=== PATIENT | female | born 1985 | race Hispanic/Latino ===

== ENCOUNTER 2018-07-24 04:12 | Inpatient (IN) | payer BC ==
[2017-06-29 07:25] VITALS: BMI 21.7
[2018-07-24] MEDS ORDERED: Lactated Ringer's 1,000 ML IV ONE (05:07)
[2018-07-24] MEDS ORDERED: DiphenhydrAMINE 50 mg/ml Inj IVP ONE ×2 (05:09→21:21)
[2018-07-24] MEDS ORDERED: Nalbuphine 20 mg/ml Inj (1 ml) IVP PRN (05:15)
[2018-07-24 05:42] LABS: BASO % 0.3 % (0.0-2.0); EOS # 0.2 K/uL (0.0-0.7); EOS % 1.6 % (0.0-4.0); HEMOGLOBIN 12.4 g/dL (11.0-16.0); LYMPH % 18.9 % (20.0-40.0); MEAN CELL VOLUME 95.3 fL (81.0-99.0); MEAN CORPUSCULAR HEMOGLOBIN 33.9 pg (27.0-31.0); MEAN CORPUSCULAR HGB CONC 35.6 g/dL (33.0-37.0); MEAN PLATELET VOLUME 7.3 fL (7.2-11.7); MONO # 0.7 K/uL (0.0-0.8); MONO % 6.8 % (0.0-10.0); NEUT # 7.8 K/uL (1.8-7.0); NEUT % 72.4 % (50.0-75.0); RBC 3.66 Mil/uL (3.80-5.20); RED CELL DISTRIBUTION WIDTH 12.6 % (11.5-14.5); WHITE BLOOD COUNT 10.8 K/uL (4.8-10.8)
[2018-07-24 05:47] LABS: SQUAMOUS EPITHIAL 6 /hpf (0-5); URINE BACTERIA MOD (<OCC)
[2018-07-24 05:52] LABS: INR 0.9
[2018-07-24 06:01] LABS: URINE BILIRUBIN NEGATIVE (NEGATIVE); URINE CLARITY Hazy (Clear); URINE COLOR YELLOW (YELLOW); URINE GLUCOSE (UA) NEGATIVE (Normal)
[2018-07-24 06:02] LABS: PH,URINE 6.5 (5.0-8.0); URINE BLOOD SMALL (NEGATIVE); URINE LEUKOCYTE ESTERASE NEGATIVE Leu/uL (Negative); URINE PROTEIN NEGATIVE (NEGATIVE); URINE UROBILINOGEN 0.2 mg/dL (0.2-1.0)
[2018-07-24 06:15] LABS: ALB/GLOB RATIO 1.4 (1.0-2.1); ALBUMIN 3.4 g/dL (3.5-5.0); ALT/SGPT 17 U/L (9-52); AST/SGOT 23 U/L (14-36); BLOOD UREA NITROGEN 6 mg/dL (7-17); GFR NON-AFRICAN AMERICAN > 60
[2018-07-24 07:01] LABS: HEPATITIS B SURFACE AG Negative (NEGATIVE)
--- NOTE | 2018-07-24 08:59 | US ---
PROCEDURE: HISTORY: LMP unknown history now bleeding. COMPARISON: None TECHNIQUE: Transabdominal scanning of the maternal pelvis and a 2nd/ 3rd trimester with image documentation FINDINGS: Fetus: Single intrauterine gestation heart rate: Present at 144 beats per minute presentation: Cephalic Placenta: The placenta is anterior. The fetus is low cephalic presentation overlying the cervix on this exam limits optimal evaluation of the anterior inferior edge of the placenta.. No gross placenta previa seen. The technologist has noted that the anterior placenta is inferior margin was greater than 2 cm from the cervix. This would then not suggest a previa or abruption. However the captured images are limited in this regard. Amniotic fluid index: 10.4 anatomy: Limited due to late gestation. biometrics: Gestational age by ultrasound: 36 weeks 4 days +/-2 weeks 4 days Estimated weight: 2963g +/-444 g Maternal factors: Uterus: Unremarkable. No myometrial masses Cervix:3.4 cm length closed Free fluid: None Biophysical profile: Breathin Gross body movements: 2 Limb tone: 2 Amniotic Fluid: 2 Total biophysical profile: 8 IMPRESSION: Single intrauterine gestation with normal cardiac activity. Gestational age by ultrasound parameters is 36 weeks 4 days +/-2 weeks 4 days presentation - cephalic. No gross previous seen. Please note the above comments. Biophysical profile 88 Please note that there is more than 1 amniotic fluid pocket with a vertical height greater than or equal to 2 cm. The reference amniotic fluid index above may over diagnosis low amniotic fluid levels. Clinical correlation and follow-up advised
[2018-07-24] MEDS ORDERED: Sodium Citrate/Citric Acid 15 ml Sol ONE (09:21)
[2018-07-24] MEDS ORDERED: Oxytocin 20 units in LR 2,000 ML IV ONE (09:21)
[2018-07-24] MEDS ORDERED: cefOXitin IV 2 gm in Dextrose 2 GM/50 ML BAG IVPB ONE ×2 (09:21→10:00)
[2018-07-24] MEDS ORDERED: Morphine 1 mg/ml preservative-free Inj(Duramorph) ONE (09:34)
--- NOTE | 2018-07-24 09:34 | OBADHP ---
Datetime: 07/24/2018 09:23 Admit Comment, IP Provider: @ 37.2 wks GA @ 37.2 wks GA IVF with MTHFR mtuaitn on hep aleida last dose prophyalxis 7pm 07/23 rpesentat at 3am with vaignal spotting bright red with wipsing. p t was evluated, labs order, US and given IVH with helped with ctx pain pt was experince every 3-5 min 12/19. After returnign form US pt had a gush of blood followed by free flow. pt was reexamined with + ROM and increased vaginalb leeding. 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: endometriosois, hx o fendometro poly PMH; Denies PSH: Laparspcy, hyseresopcy FHX: non contbiroyr MEDS: PNV, ASPRIn d/c 36 wks, heparin 5000units BID, folic acid ALlergy; Oxycodone SHX: negaive x 3 A/P @ 37.2 wks GA IVF preganancy with vaginal bleeding, ROM placenta aburpation -admit to L+D -npo, ivf -Abruption labs -US/BPP, plaenta evatuion, EFW -cont anthony oadn efm -Type and Cross -r/ba/i of IOL vs PTLCS dw patietn, due to sigifnicnatly increased VB and remote from delivery Pelvic Type - PN: Adequate Extremities - PN: Normal Abdomen - PN: Normal Back - PN: Normal Breast - PN: Normal Lungs - PN: Normal Heart - PN: Normal Thyroid - PN: Normal Neurologic - PN: Normal HEENT - PN: Normal General - PN: Normal Presentation-Admit: Vertex FHR - Baseline A Provider: 150 Membranes, Provider: Ruptured Contraction Comments Provider: q 2 min Comments, ACOG Physical Exam: Speculum Exam: scant bright red blood no clots, watery fluid at 3am /-3 Pt reexamiend 9aM Speclum: large blodo clot with gross fluid, +ROM /-3 free flow bright red Gestation - Est Wks by US: 37.2 IP Hx Assessment: The History has been Reviewed and is Current Vital Signs Provider: Reviewed IP Chief Complaint: Vaginal bleeding NICHD Variability Prov Fetus A: Moderate 6-25bpm Dilatation, Provider: 1 Effacement, Provider: 50 Station, Provider: -3 Genitourinary Exam: Normal DTRs - PN: Normal EGA AdmitDate IP: 37.2 IP Adm Impression: Term, intrauterine IP Admit Plan: Admit to unit
[2018-07-24] MEDS ORDERED: Sodium Citrate/Citric Acid 15 ml Sol PO ONE (10:00)
[2018-07-24] MEDS ORDERED: Oxytocin 10 Units/ml Inj ONE (10:22)
[2018-07-24] MEDS ORDERED: Oxycodone/Acetaminophen 5/325 mg Tab PO PRN (12:01)
--- NOTE | 2018-07-24 12:56 | OBDS ---
DELIVERY PERSONNEL Delivery Doctor: Chely Huggins MD MATERNAL INFORMATION Delivery Anesthesia: Spinal Medications in Delivery: Pitocin 40 U Placenta Cultured: Yes Maternal Complications: Abruptio Placenta RN Comments: IUP 37.2 with live baby boy born @ 1103. Apgars 3/9. Baby pale in color with minimal re spiratory effort. Suctioning and PPV given by Dr. Tate. Positive PPV outcome/ Bbay transferred to rene garcia for observation. Provider Comments: ptlcs johnie appearing uterus, tubes and ovares, placnate to patholgy ebl 800ml pediatricin presnt for dleiveyr agpars 3, 9 6lbs 11 ounces LABOR SUMMARY EDC: 08/12/2018 00:00 No. Babies in Womb: 1 Attempted: No Labor Anesthesia: Intrathecal LABOR INFORMATION Reason for Induction: Not Applicable Oxytocin: N/A Group B Beta Strep: Done, Result Unknown Steroids Given: None Reason Steroids Not Administered: Not Applicable MEMBRANES Membranes Rupture Method: Artificial Rupture of Membranes: 07/24/2018 11:03 Length of Rupture (hrs): 0.00 Amniotic Fluid Color: Clear Amniotic Fluid Amount: Moderate Amniotic Fluid Odor: Normal STAGES OF LABOR Stage 3 hrs: 0 Stage 3 min: 1 VAGINAL DELIVERY Episiotomy: None Laceration Extension: N/A Laceration Type: None Sponge Count Correct: N/A CSECTION DELIVERY Primary Indication: Abruptio Placenta CSection Urgency: Non Elective CSection Incidence: Primary Labor: N/A Elective: Elective CSection Incision: Lower Uterine Transverse BABY A INFORMATION Infant Delivery Date/Time: 07/24/2018 11:03 Method of Delivery: Born in Route : No : N/A Forceps: N/A Vacuum Extraction: N/A Shoulder Dystocia : No SHOULDER DYSTOCIA BABY A Delivery Date/Time: 07/24/2018 11:03 PRESENTATION/POSITION BABY A Presentation: Cephalic Cephalic Presentation: Vertex Breech Presentation: N/A PLACENTA INFORMATION BABY A Placenta Delivery Time : 07/24/2018 11:04 Placenta Method of Delivery: Manual Removal Placenta Status: Delivered SCORES BABY A Heart Rate 1 min: >100 bpm Resp Effort 1 min: Slow, Irregular Reflex Irritability 1 min: No Response Muscle Tone 1 min: Flaccid Color 1 min: Blue/Pale Resuscitation Effort 1 min: Tactile Stimulation; Oxygen; PPV/NCPAP SCORE 1 MIN: 3 Heart Rate 5 min: >100 bpm Resp Effort 5 min: Good Cry Reflex Irritability 5 min: Cough or Sneeze or Pulls Away Muscle Tone 5 min: Active Motion Color 5 min: Body Massena, Extremities Blue SCORE 5 MIN: 9 INFANT INFORMATION BABY A Gestational Age at Delivery: 37.2 Infant Outcome : Liveborn Infant Condition : Fair Sex: Male WEIGHT/LENGTH BABY A Birthweight (gms): 3025 Weight (lb): 6 Weight (oz): 11 Length Inches: 20.00 Length cms: 50.8 CORD INFORMATION BABY A No. Cord Vessels: 3 Nuchal Cord : N/A Cord Blood Taken: Yes Suction: Mouth; Nose ASSESSMENT BABY A Physical Findings at Delivery: Within Normal Limits Infant Respirations: Tachypnea Graphic Designer/ALS Called : Yes Infant Care By: Dr. Tate Transferred To: Nursery
[2018-07-24 13:49] LABS: BASO % 0.2 % (0.0-2.0); EOS % 0.1 % (0.0-4.0); HEMOGLOBIN 10.7 g/dL (11.0-16.0); LYMPH # 1.7 K/uL (1.0-4.3); LYMPH % 9.9 % (20.0-40.0); MEAN CELL VOLUME 96.2 fL (81.0-99.0); MEAN CORPUSCULAR HEMOGLOBIN 33.4 pg (27.0-31.0); MEAN CORPUSCULAR HGB CONC 34.7 g/dL (33.0-37.0); MEAN PLATELET VOLUME 7.2 fL (7.2-11.7); MONO # 0.9 K/uL (0.0-0.8); MONO % 5.4 % (0.0-10.0); NEUT # 14.5 K/uL (1.8-7.0); NEUT % 84.4 % (50.0-75.0); PLATELET COUNT 226 K/uL (130-400); RBC 3.19 Mil/uL (3.80-5.20); RED CELL DISTRIBUTION WIDTH 12.9 % (11.5-14.5)
[2018-07-24 13:51] LABS: WHITE BLOOD COUNT 17.2 K/uL (4.8-10.8)
[2018-07-24] MEDS ORDERED: Acetaminophen 650mg/20.3ml solution UD PO SCH (14:00)
[2018-07-24 14:45] LABS: LYMPHOCYTE 10 % (20-40); MONOCYTE 5 % (0-10); NEUTROPHIL 85 % (50-75); PLATELET ESTIMATE NORMAL (NORMAL); TOTAL CELLS COUNTED 100
--- NOTE | 2018-07-25 03:49 | OP ---
PROCEDURE DATE: 07/24/2018 PREOPERATIVE DIAGNOSES: Term intrauterine , IVF, vaginal bleeding, placental abruption. POSTOPERATIVE DIAGNOSES: Term intrauterine , IVF, vaginal bleeding, placental abruption. PROCEDURE PERFORMED: Primary low-transverse section. ANESTHESIA: Spinal. ANESTHESIA ADMINISTERED BY: Fidencio Hernandez MD OPERATIVE FINDINGS: Live male , cephalic presentation, 6 pounds 10 ounces, Apgars 3 and 9. Normal-appearing uterus, tubes, and ovaries bilaterally. Document Review Attorney was present for delivery. Dr. Jamie Ren, nursing surgical services director, was present for the entire case, essentially in gaining entry, retraction, exposure, holding the bladder blade, removing and delivering the placenta which appeared to be abrupted i.e. after delivery of the baby, closing all layers, obtaining hemostasis and was present for the entire case. ESTIMATED BLOOD LOSS: 800 mL. BLOOD PRODUCTS: None. COMPLICATIONS: None. DESCRIPTION OF PROCEDURE: The patient was taken to the operating room where she was given spinal anesthesia. Once it was found to be adequate, she was placed on the operating table in the dorsal supine position. The patient was prepped and draped in the usual sterile fashion. A time-out confirmed correct patient and correct procedure. Bimanual exam was performed with the above-mentioned findings. Following this, a Pfannenstiel skin incision was made with a scalpel, carried down to the underlying fascia with the scalpel through the subcutaneous fat to the fascia. The fascia was incised in the midline. The incision was extended laterally with the Luz scissors. The fascia was grasped with Nora clamps, and the underlying rectus muscles were dissected off bluntly. The rectus muscles were then bluntly in the midline. The peritoneum was identified and entered in clear space. The incision was extended laterally and superiorly until there was good visualization of the bladder. The lower end of the Alvaro was then inserted. The lower uterine segment was incised in a transverse fashion. The uterine incision was extended laterally with bandage scissors. The infant's head was delivered atraumatically followed by delivery of the shoulders, followed by delivery of the body. Both oral and nasal passages of the baby were bulb suctioned. The umbilical cord was clamped and cut. The baby was handed off to the awaiting freelance web designer. Cord blood and cord gases were collected and sent x2. The placenta was delivered manually and appeared to be easily . The uterus was exteriorized of all clots and debris. The uterine incision site was repaired with 0 Vicryl in a running continuous locked fashion. The second layer of the same suture was used to close the uterus in a running imbricating manner. The uterus was then returned to the abdomen. There were normal tubes and ovaries. Pericolic gutters were cleared of all clots and debris. There was good hemostasis at the uterine incision site. The peritoneum was reapproximated with 2-0 chromic in a running continuous fashion. The rectus was reapproximated and closed with 2-0 chromic in an interrupted manner. The fascia was reapproximated and closed with 0 Vicryl in a running continuous fashion. The skin was reapproximated and closed with a 4-0 Monocryl in a running subcuticular fashion. At the end of the procedure, all needle, sponge and instrument counts were noted to be correct x2. The patient tolerated the procedure well and was transferred to the recovery room in stable condition. Chely Huggins MD
[2018-07-25 08:20] LABS: HEMOGLOBIN 10.6 g/dL (11.0-16.0); MEAN CELL VOLUME 95.2 fL (81.0-99.0); MEAN CORPUSCULAR HEMOGLOBIN 33.5 pg (27.0-31.0); MEAN CORPUSCULAR HGB CONC 35.2 g/dL (33.0-37.0); MEAN PLATELET VOLUME 7.1 fL (7.2-11.7); RBC 3.18 Mil/uL (3.80-5.20); RED CELL DISTRIBUTION WIDTH 12.4 % (11.5-14.5); WHITE BLOOD COUNT 14.3 K/uL (4.8-10.8)
[2018-07-25] MEDS: Prenatal Multivit/Folic Acid/Iron Tab PO SCH (09:38)
[2018-07-25] MEDS ORDERED: Enoxaparin 40 mg Syringe SC SCH (10:00)
[2018-07-25] MEDS: Enoxaparin 40 mg Syringe SC SCH (13:30)
--- NOTE | 2018-07-26 11:03 | VASCLAB ---
Date of service: 07/25/2018 PROCEDURE: Lower Extremity Venous Duplex Exam. HISTORY: r/o dvt PRIORS: None. TECHNIQUE: Bilateral common femoral, femoral, popliteal and posterior tibial, peroneal and great saphenous veins were evaluated. Flow was assessed with color Doppler, compressibility, assessment of phasic flow and augmentation response. Report prepared by ANGELIA Fernando FINDINGS: RIGHT: 1. Common Femoral Vein: 1.1. Compressibility - Fully compressible: Thrombus - None : Flow - Phasic: Augmentation -Normal: Reflux - None. 2. Femoral Vein: 2.1. Compressibility - Fully compressible: Thrombus - None : Flow - Phasic: Augmentation -Normal: Reflux - None. 3. Popliteal Vein: 3.1. Compressibility - Fully compressible: Thrombus - None : Flow - Phasic: Augmentation -Normal: Reflux - None. 4. Posterior Tibial Vein: 4.1. Compressibility - Fully compressible: Thrombus - None: Flow - Phasic: Augmentation -Normal: Reflux - None. 5. Peroneal Vein: 5.1. Compressibility - Fully compressible: Thrombus - None: Flow - Phasic: Augmentation -Normal: Reflux - None. 6. Great Saphenous Vein: 6.1. Compressibility - Fully compressible: Thrombus - None: Flow - Phasic: Augmentation - Normal: Reflux - None. LEFT: 1. Common Femoral Vein: 1.1. Compressibility - Fully compressible: Thrombus - None: Flow - Phasic: Augmentation -Normal: Reflux - None. 2. Femoral Vein: 2.1. Compressibility - Fully compressible: Thrombus - None: Flow - Phasic: Augmentation -Normal: Reflux - None. 3. Popliteal Vein: 3.1. Compressibility - Fully compressible: Thrombus - None : Flow - Phasic: Augmentation -Normal: Reflux - None. 4. Posterior Tibial Vein: 4.1. Compressibility - Fully compressible: Thrombus - None: Flow - Phasic: Augmentation -Normal: Reflux - None. 5. Peroneal Vein: 5.1. Compressibility - Fully compressible: Thrombus - None: Flow - Phasic: Augmentation -Normal: Reflux - None. 6. Great Saphenous Vein: 6.1. Compressibility - Fully compressible: Thrombus - None: Flow - Phasic: Augmentation - Normal: Reflux - None. OTHER FINDINGS: Right: None significant. Left: None significant. IMPRESSION: Right: No evidence of deep or superficial vein thrombosis of the right lower extremity. Normal valve function noted of the right side. Left: No evidence of deep or superficial vein thrombosis of the left lower extremity. Normal valve function noted of the left side.
[2018-07-26] MEDS: Simethicone 80 mg Chewtab PO SCH ×4 (11:08→22:53)
[2018-07-26] MEDS: Enoxaparin 40 mg Syringe SC SCH (11:08)
[2018-07-26] MEDS: Prenatal Multivit/Folic Acid/Iron Tab PO SCH (11:08)
--- NOTE | 2018-07-26 20:31 | OBPPN ---
Datetime: 07/26/2018 11:30 PP Pain Prov: Within normal limits PP Nausea Prov: Denies PP Flatus Prov: Yes PP BM Prov: Yes PP Impression Prov: Normal progression PP Plan Prov: Continue present management PP Progress Note Prov: Patient seen and examined at bedside. Per nursing no acute events overnight. Patient is doing well, pain is controlled. She is ambulating and tolerating diet. Lochia is mild. Pas sing flatus and had a bowel movement. Urinating without difficulty. Breast and bottle feeding VS: 120/79 83 97.1 Gen: AAOx3 Abdomen: Soft, fundus firm, incision c/d/i with steristrips Ext: +1 edema bilaterally, no cyanosis or clubbing A/P: This at 37w2d s/p PLTCD 2/2 placental abruption POD#2 -Stable, afebrile -Continue routine post op care -Encourage ambulation, hydration, and ISS use -Encourage breast feeding -Continue lovenox 40mg SC daily -Edema: lower extremity dopplers negative, continue leg elevation and compression stockings -Discussed with Dr Joseluis Stern DO PGY-2 agre with aoe pt seen stephenn leena lower frankieel janny lw 1+ b/l negaitv noris sign plan cont above abmange kamran, leg elvaiton Vital Signs Provider PP: Reviewed; Within Normal Limits
[2018-07-27] MEDS: Prenatal Multivit/Folic Acid/Iron Tab PO SCH (09:32)
[2018-07-27] MEDS: Enoxaparin 40 mg Syringe SC SCH (09:38)
[2018-07-27] MEDS: Simethicone 80 mg Chewtab PO SCH (09:39)
[2018-07-27] MEDS ORDERED: Tdap Vaccine 0.5 ml Vial (10-64 yrs) IM ONE (10:30)
[2018-07-27 17:12] VITALS: BP 128/80; PULSE 88; RESP 18; TEMP 98; O2SAT 99
== END 2018-07-27 13:05 | disposition home or self-care (01) | DRG 788 ==
LOC: C.EROB 04:12 → C.4D 09:11 → C.4M 14:54
PROVIDERS: ADMIT Obstetrics & Gynecology; ATTEND Obstetrics & Gynecology
PROC: 10D00Z1 Extraction of Products of Conception, Low, Open Approach (ICD-10-PCS; principal; 2018-07-24)
DX: O45.93 Premature separation of placenta, unspecified, third trimester (principal); Z3A.37 37 weeks gestation of pregnancy; Z37.0 Single live birth

== ENCOUNTER 2018-07-28 22:12 | Emergency (ER) | payer BC ==
[2018-07-28 22:12] VITALS: BMI 21.7
--- NOTE | 2018-07-28 22:49 | C.PDOC ---
History Of Present Illness 33 year old female is referred to the emergency department by her NUMERICAL CONTROL MACHINE TOOL OPERATOR for fever post-op from for abruptio placentae. Successful delivery, no complications. As per mother, she has not been because her baby w on't latch on, and she is not pumping. Patient complains of tender, engorged breasts. She denies abdominal pain and abnormal smelling vaginal discharge. Time Seen by Provider: 07/28/18 22:46 Chief Complaint (Nursing): Fever History Per: Patient, Other (NUMERICAL CONTROL MACHINE TOOL OPERATOR Ramos Huggins ) History/Exam Limitations: no limitations Onset/Duration Of Symptoms: Days Current Symptoms Are (Timing): Still Present Associated Symptoms: Fever, Other (tender, engorged breasts) Past Medical History Reviewed: Historical Data, Nursing Documentation, Vital Signs Vital Signs: Last Vital Signs Temp 100.2 F H 07/28/18 22:31 Pulse 123 H 07/28/18 22:31 Resp 20 07/28/18 22:31 BP 121/87 07/28/18 22:31 Pulse Ox 99 07/28/18 22:31 - Medical History PMH: No Chronic Diseases Denies: Chronic Kidney Disease Surgical History: No Surg Hx Family History: States: No Known Family Hx - Social History Hx Alcohol Use: No Hx Substance Use: No - Immunization History Hx Tetanus Toxoid Vaccination: Yes Hx Influenza Vaccination: Yes Hx Pneumococcal Vaccination: No Review Of Systems Except As Marked, All Systems Reviewed And Found Negative. Constitutional: Positive for: Fever Cardiovascular: Positive for: Chest Pain (tender, engorged breasts). Negative for: Palpitations Respiratory: Negative for: Cough, Shortness of Breath Gastrointestinal: Negative for: Abdominal Pain Genitourinary: Negative for: Vaginal Discharge Physical Exam - Physical Exam Appears: Non-toxic, No Acute Distress Skin: Normal Color, Warm, Dry Head: Atraumatic, Normacephalic Eye(s): bilateral: Normal Inspection, PERRL, EOMI Oral Mucosa: Moist Neck: Normal, Supple Chest: Symmetrical, Tenderness (tenderness and engorgement to breasts bilaterally) Cardiovascular: Rhythm Regular, No Murmur Respiratory: Normal Breath Sounds, No Rales, No Rhonchi, No Wheezing Gastrointestinal/Abdominal: Soft, No Tenderness, Other (Pfannenstiel scar, clean, dry, intact, suture and tape in place. No fluctuance. ) Pelvic: Other (deferred) Neurological/Psych: Oriented x3, Normal Speech, Normal Cognition ED Course And Treatment - Laboratory Results Result Diagrams: 07/28/18 23:16 07/28/18 23:16 Lab Interpretation: Normal (ua 3 WBC's) O2 Sat by Pulse Oximetry: 99 (RA) Pulse Ox Interpretation: Normal - CT Scan/US US Pelvis/Transvag Other Rad Studies (CT/US): Read By Radiologist, Radiology Report Reviewed CT/US Interpretation: IMPRESSION: 1. There is a suggestion of vascular flow overlying the endometrium on series 2, image 25. There is also a question of abnormal flow at the endometrium on series 2, image 53. Other images do not confirm these findings. Nonetheless, the possibility of retained products conception is not excluded. Please correlate clinically and if indicated this could be further evaluated with repeat examination. These findings are being telephoned to the referring clinician's at the time of this dictation. - Physician Consult Information Outcome Of Conversation: 2300 and ongoing, d/w Dr. Jefferson Huggins, pt's OBGYN. findings and eval reviewed, ok to d/c home, no abx, breast pumping reinforced Medical Decision Making Medical Decision Making: fevers, probably due to engorgement of not breast feeding/pumping LOW susp of RPOC or endometritis with normal labs and no abd/pelvic pain nor vag d/c. ok to d/c home w/o abx per OBGYN Dr. Ramos Huggins. Plan: CMP CBC Zosyn 3.375gm IVPB NaCl IV Fluids Tylenol 975mg PO Blood Culture Urinalysis US Pelvis/Transvag Disposition Doctor Will See Patient In The: Office Counseled Patient/Family Regarding: Studies Performed, Diagnosis - Disposition Referrals: [facility] [Outside] [facility] [Outside] [facility] [Outside] Chely Huggins MD [Staff Provider] - Disposition: HOME/ ROUTINE Disposition Time: 01:59 Condition: GOOD Additional Instructions: breast pumping/massage per Dr. Huggins's teaching normal workup, normal pelvic US and urinalysis. NO further antibiotics required at this time. Instructions: Common Problems, Fever, Adult (DC) Forms: [facility] (Lithuanian) - Clinical Impression Clinical Impression: Fever - Scribe Statement The provider has reviewed the documentation as recorded by the Scribe (Ray Mitchellqvi) Provider Attestation: All medical record entries made by the Scribe were at my direction and personally dictated by me. I have reviewed the chart and agree that the record accurately reflects my personal performance of the history, physical exam, med ica decision making, and the department course for this patient. I have also personally directed, reviewed, and agree with the discharge instructions and disposition.
[2018-07-28] MEDS ORDERED: Sodium Chloride 0.9% 1,000 ML IV ONE (23:00)
[2018-07-28] MEDS ORDERED: Piperacill/Tazo 3.375gm in Dex 3.375 GM/50 ML BAG IVPB STA (23:05)
[2018-07-28 23:19] LABS: BASO # 0.1 K/uL (0.0-0.2); BASO % 0.5 % (0.0-2.0); EOS # 0.2 K/uL (0.0-0.7); EOS % 2.3 % (0.0-4.0); HEMOGLOBIN 10.7 g/dL (11.0-16.0); LYMPH # 1.1 K/uL (1.0-4.3); LYMPH % 11.9 % (20.0-40.0); MEAN CELL VOLUME 95.3 fL (81.0-99.0); MEAN CORPUSCULAR HEMOGLOBIN 33.8 pg (27.0-31.0); MEAN CORPUSCULAR HGB CONC 35.5 g/dL (33.0-37.0); MEAN PLATELET VOLUME 6.3 fL (7.2-11.7); MONO # 0.5 K/uL (0.0-0.8); MONO % 5.5 % (0.0-10.0); NEUT # 7.5 K/uL (1.8-7.0); NEUT % 79.8 % (50.0-75.0); RBC 3.17 Mil/uL (3.80-5.20); RED CELL DISTRIBUTION WIDTH 12.4 % (11.5-14.5); WHITE BLOOD COUNT 9.4 K/uL (4.8-10.8)
[2018-07-28] MEDS ORDERED: Piperacillin/Tazobact 3.375 gm 100 ML IVPB ONE (23:24)
[2018-07-28] MEDS ORDERED: Sodium Chloride 0.9% 1,000 ML ONE (23:24)
[2018-07-28 23:33] LABS: ALB/GLOB RATIO 1.3 (1.0-2.1); ALBUMIN 3.6 g/dL (3.5-5.0); ALT/SGPT 25 U/L (9-52); AST/SGOT 37 U/L (14-36); BLOOD UREA NITROGEN 9 mg/dL (7-17); CALCIUM 9.9 mg/dl (8.6-10.4); GFR NON-AFRICAN AMERICAN > 60
[2018-07-28 23:37] LABS: SQUAMOUS EPITHIAL 3 /hpf (0-5); URINE BILIRUBIN NEGATIVE (NEGATIVE); URINE CLARITY Clear (Clear); URINE COLOR Straw (YELLOW); URINE GLUCOSE (UA) NORMAL (Normal); URINE LEUKOCYTE ESTERASE NEG Leu/uL (Negative); URINE PROTEIN NEGATIVE (NEGATIVE); URINE UROBILINOGEN NORMAL mg/dL (0.2-1.0)
[2018-07-28 23:38] LABS: URINE BLOOD 1+ (NEGATIVE)
[2018-07-29 01:59] VITALS: O2SAT 99
[2018-07-29 02:12] VITALS: BP 128/78; PULSE 99; RESP 17; TEMP 99.1
--- NOTE | 2018-07-29 11:14 | US ---
Date of service: 07/29/2018 HISTORY: fever post x4 days, ? endometritis COMPARISON: Comparison is made to the previous study dated 07/24/2018 TECHNIQUE: Transabdominal and endovaginal ultrasound examination of the pelvis was performed. FINDINGS: UTERUS: Measures 14.5 x 6.1 x 10.9 cm. Normal in size and appearance. No fibroid or other mass lesion seen. ENDOMETRIUM: Measures 9 mm in diameter. Suspicious for focal increased blood flow in the endometrium. CERVIX: No cervical abnormality identified. RIGHT OVARY: Measures 4.3 x 2.9 x 3.3 cm. No solid mass. Normal flow. LEFT OVARY: Measures 4.2 x 2.9 x 4.5 cm. No solid mass. Normal flow. FREE FLUID: No significant free fluid noted. OTHER FINDINGS: None. IMPRESSION: Focal increased blood flow in the endometrium noted. The possibility of small retained product of conception is not totally excluded. No evidence of fluid collection or abnormal thickening of the endometrium noted in this exam. Preliminary report was submitted by [facility] Radiology contains concordant findings.
== END 2018-07-29 02:11 | disposition home or self-care (01) ==
LOC: C.ER 22:12
DX: R50.9 Fever, unspecified (principal)
CPT/HCPCS: 76830; 76856; 80053; 81001; 85025; 87040; 96374; 99284; J2543; J7030

== ENCOUNTER 2018-07-30 22:45 | Emergency (ER) | payer BC ==
[2018-07-30 22:45] VITALS: BMI 21.7
[2018-07-30 22:56] VITALS: O2SAT 100
--- NOTE | 2018-07-30 23:38 | C.PDOC ---
History Of Present Illness 33 year old female gave 1 week ago, has been taking blood pressure at home as instructed by OB and told to come to ER if diastolic was above 90. Patient states tonight she noticed her diastolic was above 90, she reports headache and chest pain. Denies SOB, abdominal pain, vaginal bleeding, or vaginal discharge. Patient was seen several days ago for fever, told her has breast engorgement, given IV antibiotics and discharged home. With the headache she denies neuro deficit, burry vision, syncope, dizziness, weakness, or numbness. Time Seen by Provider: 07/30/18 22:56 Chief Complaint (Nursing): Headache History Per: Patient History/Exam Limitations: no limitations Onset/Duration Of Symptoms: Hrs Current Symptoms Are (Timing): Still Present Associated Symptoms: Chest Pain, Headache Recent travel outside of the [place]: No Past Medical History Reviewed: Historical Data, Nursing Documentation, Vital Signs Vital Signs: Last Vital Signs Temp 98.8 F 07/30/18 22:49 Pulse 84 07/30/18 22:49 Resp 20 07/30/18 22:49 BP 152/93 H 07/30/18 22:49 Pulse Ox 100 07/30/18 22:49 - Medical History PMH: Denies: Chronic Kidney Disease Surgical History: Appendectomy - [facility] Procedures EXTRACTION OF POC, LOW CERVICAL, OPEN APPROACH (07/24/18) Family History: States: Unknown Family Hx - Social History Hx Alcohol Use: No Hx Substance Use: No - Immunization History Hx Tetanus Toxoid Vaccination: Yes Hx Influenza Vaccination: Yes Hx Pneumococcal Vaccination: No Review Of Systems Constitutional: Negative for: Fever, Chills Eyes: Negative for: Vision Change Cardiovascular: Positive for: Chest Pain Respiratory: Negative for: Cough, Shortness of Breath Gastrointestinal: Negative for: Nausea, Vomiting Genitourinary: Negative for: Dysuria, Hematuria Musculoskeletal: Negative for: Back Pain Skin: Negative for: Rash Neurological: Positive for: Headache. Negative for: Weakness, Numbness, Dizziness, Other (Syncope) Physical Exam - Physical Exam Appears: Non-toxic Skin: Normal Color, Warm, Dry Head: Atraumatic, Normacephalic Eye(s): bilateral: Normal Inspection, PERRL, EOMI Oral Mucosa: Moist Neck: Normal, Supple Chest: Symmetrical, No Tenderness Cardiovascular: Rhythm Regular Respiratory: Normal Breath Sounds, No Rales, No Rhonchi, No Wheezing Gastrointestinal/Abdominal: Soft, No Tenderness Extremity: Normal ROM (x4) Neurological/Psych: Oriented x3, Normal Speech, Normal Motor, Normal Sensation ED Course And Treatment - Laboratory Results Result Diagrams: 07/30/18 23:57 07/30/18 23:57 ECG: Interpreted By Me, Viewed By Me ECG Rhythm: Sinus Rhythm ECG Interpretation: Normal Interpretation Of ECG: Normal axis, normal interval, no st elevation Rate From EC O2 Sat by Pulse Oximetry: 100 (room air) Pulse Ox Interpretation: Normal Medical Decision Making Medical Decision Making: Tylenol PO given for headache. Labs done and were unremarkable, including normal LFTs and no proteinuria on UA. Case discussed with L&D, agree if labs are normal and BP improves, no need for further intervention at this time. Can follow up with Dr. Huggins. Repeat BP 148/88. Toradol IVP given for continued headache. On re-eval, patient seeping comfortably. Results discussed. Advised tylenol/motrin for headache. Follow up with bag sealer. Disposition - Disposition Referrals: Chely Huggins MD [Staff Provider] - Disposition: HOME/ ROUTINE Disposition Time: 01:13 Condition: STABLE Additional Instructions: DANIAL VENEGAS, thank you for letting us take care of you today. Your provider was Lizzy Tidwell MD and you were treated for CHEST PAIN. The emergency medical care you received today was directed at your acute symptoms. If you were prescribed any medication, please fill it and take as directed. It may take several days for your symptoms to resolve. Return to the Emergency Dep artment if your symptoms worsen, do not improve, or if you have any other problems. Please contact your doctor or call one of the physicians/clinics you have been referred to that are listed on the Patient Visit Information form that is included in your discharge packet. Bring any paperwork you were given at discharge with you along with any medications you are taking to your follow up visit. Our treatment cannot replace ongoing medical care by a primary care provider outside of the emergency department. Thank you for allowing the [facility] team to be part of your care today. If you had an X-Ray or CT scan: A Radiologist will review the ED reading if any change in treatment is needed we will contact you. If you had a blood, urine, or wound culture: It will take several days for the results, if any change in treatment is needed we will contact you. If you had an STI test: It will take 48 hours for the results. Please call after 1 week if you have not heard back. Instructions: High Blood Pressure (DC), Headache, Adult (DC) Forms: [employer] (Tuvaluan) - Clinical Impression Clinical Impression: Headache, High blood pressure - Scribe Statement The provider has reviewed the documentation as recorded by the Scribjerzy Smiley All medical record entries made by the Eddyibe were at my direction and personally dictated by me. I have reviewed the chart and agree that the record accurately reflects my personal performance of the history, physical exam, medical decision making, and the department course for this patient. I have also personally directed, reviewed, and agree with the discharge instructions and disposition.
[2018-07-31 00:03] LABS: BASO % 0.4 % (0.0-2.0); EOS # 0.2 K/uL (0.0-0.7); EOS % 2.9 % (0.0-4.0); HEMOGLOBIN 10.1 g/dL (11.0-16.0); LYMPH # 1.7 K/uL (1.0-4.3); LYMPH % 22.9 % (20.0-40.0); MEAN CELL VOLUME 95.5 fL (81.0-99.0); MEAN CORPUSCULAR HEMOGLOBIN 33.3 pg (27.0-31.0); MEAN CORPUSCULAR HGB CONC 34.8 g/dL (33.0-37.0); MEAN PLATELET VOLUME 6.4 fL (7.2-11.7); MONO # 0.5 K/uL (0.0-0.8); MONO % 6.1 % (0.0-10.0); NEUT # 5.1 K/uL (1.8-7.0); NEUT % 67.7 % (50.0-75.0); RBC 3.05 Mil/uL (3.80-5.20); RED CELL DISTRIBUTION WIDTH 12.3 % (11.5-14.5); WHITE BLOOD COUNT 7.5 K/uL (4.8-10.8)
[2018-07-31 00:18] VITALS: BP 148/88
[2018-07-31 00:18] LABS: SQUAMOUS EPITHIAL 1 /hpf (0-5); URINE BACTERIA RARE (<OCC); URINE BILIRUBIN NEGATIVE (NEGATIVE); URINE CLARITY Clear (Clear); URINE COLOR Straw (YELLOW); URINE GLUCOSE (UA) NORMAL (Normal); URINE LEUKOCYTE ESTERASE NEG Leu/uL (Negative); URINE PROTEIN NEGATIVE (NEGATIVE); URINE UROBILINOGEN NORMAL mg/dL (0.2-1.0)
[2018-07-31 00:25] LABS: URINE BLOOD NEGATIVE (NEGATIVE)
[2018-07-31 00:43] LABS: ALB/GLOB RATIO 1.5 (1.0-2.1); ALBUMIN 3.8 g/dL (3.5-5.0); ALT/SGPT 28 U/L (9-52); AST/SGOT 29 U/L (14-36); BLOOD UREA NITROGEN 13 mg/dL (7-17); CALCIUM 9.6 mg/dl (8.6-10.4); GFR NON-AFRICAN AMERICAN > 60
[2018-07-31 01:24] VITALS: PULSE 78; RESP 18; TEMP 98.1
--- NOTE | 2018-07-31 20:17 | CARD ---
APPROVED REPORT Date of service: 07/30/2018 EKG Measurement Heart [id number] <Conclusion> Normal sinus rhythm Normal ECG
== END 2018-07-31 01:41 | disposition home or self-care (01) ==
LOC: C.ER 22:45
DX: I10 Essential (primary) hypertension (principal)
CPT/HCPCS: 80053; 81001; 83735; 84100; 85025; 93005; 96374; 99285; J1885

== ENCOUNTER 2018-08-01 14:57 | Emergency (ER) | payer BC ==
[2018-08-01 15:04] VITALS: BMI 25.0
[2018-08-01 15:42] LABS: BASO % 0.6 % (0.0-2.0); EOS # 0.1 K/uL (0.0-0.7); HEMOGLOBIN 10.8 g/dL (11.0-16.0); LYMPH # 1.5 K/uL (1.0-4.3); LYMPH % 24.5 % (20.0-40.0); MEAN CELL VOLUME 94.6 fL (81.0-99.0); MEAN CORPUSCULAR HGB CONC 34.9 g/dL (33.0-37.0); MEAN PLATELET VOLUME 5.8 fL (7.2-11.7); MONO # 0.4 K/uL (0.0-0.8); NEUT # 4.2 K/uL (1.8-7.0); NEUT % 66.9 % (50.0-75.0); RBC 3.26 Mil/uL (3.80-5.20); RED CELL DISTRIBUTION WIDTH 12.3 % (11.5-14.5); WHITE BLOOD COUNT 6.3 K/uL (4.8-10.8)
--- NOTE | 2018-08-01 15:44 | C.PDOC ---
History Of Present Illness 33 y/o female, 1 week , presents to the ED for evaluation of elevated blood pressure, taken at home today. Patient was seen here in the ED 4 days ago for the same, lab work was unremarkable at that time. OB Dr. Sharifa Huggins was consulted and patient was discharged, instructed to monitor BP at home. She notes pressure has been running 140-130/80, occasionally with diastolic as high as 90. She has been asymptomatic. Patient has not had any headache or visual disturbances since discharge. Patient was seen in the office by her PMD and started on Lasix. Today she called Dr Huggins who prescribed Labetolol BID. Today patient was feeding baby and began feeling a tingling in her right forearm. Pressure was found to be 140/90 and patient came to the ED. Ahe took one dose of Labetolol prior to arrival. She describes tingling as intermittent. Denies any headache, visual disturbance, slurred speech, chest pain, SOB, dizziness, extremity weakness, numbness, or facial droop. Patient notes she delivered via , complicated by abruptio placenta. Time Seen by Provider: 08/01/18 15:18 Chief Complaint (Nursing): High Blood Pressure History Per: Patient History/Exam Limitations: no limitations Onset/Duration Of Symptoms: Days (4) Current Symptoms Are (Timing): Still Present Associated Symptoms: denies: Blurred Vision, Headache Quality Of Symptoms: Asymptomatic Past Medical History Reviewed: Historical Data, Nursing Documentation, Vital Signs Vital Signs: Last Vital Signs Temp 98.8 F 08/01/18 15:05 Pulse 80 08/01/18 15:05 Resp 18 08/01/18 15:05 BP 148/91 H 08/01/18 15:05 Pulse Ox 100 08/01/18 15:05 - Medical History PMH: Denies: Chronic Kidney Disease Surgical History: Appendectomy, (07/24/18) - [facility] Procedures EXTRACTION OF POC, LOW CERVICAL, OPEN APPROACH (07/24/18) Family History: States: Unknown Family Hx - Social History Hx Alcohol Use: No Hx Substance Use: No - Immunization History Hx Tetanus Toxoid Vaccination: Yes Hx Influenza Vaccination: Yes Hx Pneumococcal Vaccination: No Review Of Systems Constitutional: Negative for: Fever, Sweats Eyes: Negative for: Vision Change Cardiovascular: Negative for: Chest Pain, Palpitations Respiratory: Negative for: Shortness of Breath Gastrointestinal: Negative for: Nausea, Vomiting Musculoskeletal: Positive for: Other (Tingling to right forearm, intermittent). Negative for: Arm Pain Neurological: Negative for: Weakness, Numbness, Change in Speech, Headache, Dizziness Physical Exam - Physical Exam Appears: Well, Non-toxic, No Acute Distress Skin: Normal Color, Warm Head: Atraumatic, Normacephalic Eye(s): bilateral: Normal Inspection, PERRL, EOMI Oral Mucosa: Moist Neck: Normal ROM Chest: Symmetrical Cardiovascular: Rhythm Regular, No Murmur Respiratory: Normal Breath Sounds, No Rales, No Rhonchi, No Wheezing Gastrointestinal/Abdominal: Soft, No Tenderness, No Distention, Other ( incision with dressing intact) Extremity: Bilateral: Atraumatic, Normal ROM Pulses: Left Radial: Normal, Right Radial: Normal Neurological/Psych: Oriented x3, Normal Speech, Normal Cranial Nerves, Normal Motor (Strength equal bilaterally), Other (No focal deficit) Gait: Steady Extremity: Right: No Drift, Left: No Drift ED Course And Treatment - Laboratory Results Result Diagrams: 08/01/18 15:36 08/01/18 15:36 Lab Interpretation: Abnormal (LDH 684, AST, ALT normal, Urine negative for protein.) ECG: Interpreted By Nd ECG Rhythm: Sinus Rhythm ECG Interpretation: Normal O2 Sat by Pulse Oximetry: 100 (on RA) Pulse Ox Interpretation: Normal - CT Scan/US Head Other Rad Studies (CT/US): Read By Radiologist, Radiology Report Reviewed CT/US Interpretation: Accession No. : [id number]. Patient Name / ID : RUBI BARROW / [id number]. Exam Date : 08/01/2018 15:51:47 ( Approved ). Study Comment : Sex / Age : F / 33Y. Creator : Kiley Hodge. Dictator : Marianna Lane MD. Numerical Analysis Group Manager : Chief Building Inspector : Marianna Lane MD. Approver2 : Report Date : 08/01/2018 16:01:46. My Comment : . Date of service: 08/01/2018. PROCEDURE: CT HEAD WITHOUT CONTRAST. HISTORY: R/O Bleed. COMPARISON: None available. TECHNIQUE: Axial computed tomography images were obtained through the head/brain without intravenous contrast. Radiation dose: Total exam DLP = 1001.0 mGy-cm. This CT exam was performed using one or more of the following dose reduction techniques: Automated exposure control, adjustment of the mA and/or kV according to patient size, and/or use of iterative reconstruction technique. FINDINGS: HEMORRHAGE: No intracranial hemorrhage. BRAIN: Damon-white matter differentiation is preserved. There is no mass, mass effect or abnormal extra-axial fluid collection. There is no territorial infarction. The midline sagittal structures are normal. VENTRICLES: The ventricles are normal in size, shape and configuration. CALVARIUM: There is no calvarial fracture or extracranial soft tissue swelling. PARANASAL SINUSES: Predominantly clear. MASTOID AIR CELLS: Predominantly clear. OTHER FINDINGS: None. IMPRESSION: No acute intracranial abnormality. Progress Note: Patient seen immediately at bedside, no code stroke. Will work up patient including blood work, UA, EKG, CT Head. Reevaluation Time: 16:40 Reassessment Condition: Improved (BP 123/76) - Physician Consult Information Time Consulting Physician Contacted: 17:29 Physician Contacted: Chely Huggins Outcome Of Conversation: Patient is to discontinue the Lasix and continue taking the Labetolol BID. She will se her in the office 08/06. NIHSS Stroke Scale 2 - Date/Time Evaluation Performed Date Performed: 08/01/18 Time Performed: 15:15 When Was NIHSS Performed: Baseline - How Severe is the Stroke Level of Consciousness: 0=Alert LOC to Questions: 0=Both comments correct LOC to commands: 0=Obeys both correctly Best Gaze: 0=Normal Visual: 0=No visual loss Facial: 0=Normal Motor Arm - Left: 0=No drift Motor Arm - Right: 0=No drift Motor Leg - Left: 0=No drift Motor Leg - Right: 0=No drift Sensory: 0=Normal Best Language: 0=No aphasia Dysarthia: 0=Normal articulation Extinction & Inattention (Neglect): 0=Normal, no object Disposition Counseled Patient/Family Regarding: Studies Performed, Diagnosis, Need For Followup - Disposition Referrals: Chely Huggins MD [Staff Provider] - Disposition: HOME/ ROUTINE Disposition Time: 17:49 Condition: IMPROVED Additional Instructions: See Dr Huggins in the office Sunday 08/06. Instructions: High Blood Pressure and Forms: [email or web address] (Khmer) - Clinical Impression Clinical Impression: High blood pressure - Scribe Statement The provider has reviewed the documentation as recorded by the Cristobal Jones Provider Attestation: All medical record entries made by the Cristobal were at my direction and personally dictated by me. I have reviewed the chart and agree that the record accurately reflects my personal performance of the history, physical exam, medical decision making, and the department course for this patient. I have also personally directed, reviewed, and agree with the discharge instructions and disposition.
[2018-08-01 15:53] LABS: URINE BACTERIA RARE (<OCC); URINE BILIRUBIN NEGATIVE (NEGATIVE); URINE BLOOD 2+ (NEGATIVE); URINE CLARITY Clear (Clear); URINE COLOR Yellow (YELLOW); URINE GLUCOSE (UA) NORMAL (Normal); URINE LEUKOCYTE ESTERASE 1+ Leu/uL (Negative); URINE PROTEIN NEGATIVE (NEGATIVE); URINE UROBILINOGEN NORMAL mg/dL (0.2-1.0)
[2018-08-01 15:55] LABS: ALB/GLOB RATIO 1.6 (1.0-2.1); ALBUMIN 4.1 g/dL (3.5-5.0); ALT/SGPT 26 U/L (9-52); AST/SGOT 24 U/L (14-36); BLOOD UREA NITROGEN 13 mg/dL (7-17); CALCIUM 8.9 mg/dl (8.6-10.4); GFR NON-AFRICAN AMERICAN > 60
--- NOTE | 2018-08-01 16:17 | CT ---
Date of service: 08/01/2018 PROCEDURE: CT HEAD WITHOUT CONTRAST. HISTORY: R/O Bleed COMPARISON: None available. TECHNIQUE: Axial computed tomography images were obtained through the head/brain without intravenous contrast. Radiation dose: Total exam DLP = 1001.0 mGy-cm. This CT exam was performed using one or more of the following dose reduction techniques: Automated exposure control, adjustment of the mA and/or kV according to patient size, and/or use of iterative reconstruction technique. FINDINGS: HEMORRHAGE: No intracranial hemorrhage. BRAIN: Damon-white matter differentiation is preserved. There is no mass, mass effect or abnormal extra-axial fluid collection. There is no territorial infarction. The midline sagittal structures are normal. VENTRICLES: The ventricles are normal in size, shape and configuration. CALVARIUM: There is no calvarial fracture or extracranial soft tissue swelling. PARANASAL SINUSES: Predominantly clear. MASTOID AIR CELLS: Predominantly clear. OTHER FINDINGS: None. IMPRESSION: No acute intracranial abnormality.
[2018-08-01 17:57] VITALS: BP 127/74; PULSE 86; RESP 20; TEMP 98.5; O2SAT 98
--- NOTE | 2018-08-02 18:07 | CARD ---
APPROVED REPORT Date of service: 08/01/2018 EKG Measurement Heart [id number] <Conclusion> Normal sinus rhythm Normal ECG
== END 2018-08-01 18:04 | disposition home or self-care (01) ==
LOC: C.ER 14:57
DX: R03.0 Elevated blood-pressure reading, without diagnosis of hypertension (principal)